=== PATIENT | female | born 1980 | race Caucasian/White ===

== ENCOUNTER 2017-04-30 12:16 | Emergency (ER) | payer SELFPAY ==
[~2017-04-30] VITALS: Ht 165.1 cm; Wt 90.0 kg
[2017-04-30 12:22] VITALS: BP 162/82; PULSE 78; RESP 16; TEMP 98.8; O2SAT 98
[2017-04-30] MEDS ORDERED: PRED20 PO (12:57)
[2017-04-30] MEDS ORDERED: PERM5CRE11 TOPICAL (12:57)
--- NOTE | 2017-04-30 12:57 | PD ---
HPI Chief Complaint: Skin Problem Time Seen by Provider: 12:49 Travel History International Travel<30 days: No Contact w/Intl Traveler<30days: No Traveled to known affect area: No History of Present Illness HPI 36-year-old female here with a rash to her upper and lower extremities 2 weeks. She reports the area as pruritic. Denies any recent change in soaps, detergents, or meds. Reports no Jakob the home has similar symptoms. She has not attempted any [id number] remedies for treatment. Symptom severity is moderate. No aggravating or alleviating factors. Denies fever or chills. PFSH Past Medical History Anxiety: Yes Depression: Yes Diabetes: No Diminished Hearing: No Seizures: No Influenza Vaccination: No ?: Not LMP: 10 days ago Tubal Ligation: Yes (10 YRS AGO) Past Surgical History Section: Yes Social History Alcohol Use: No Tobacco Use: Yes (1 pack/day) Substance Use: No Allergies-Medications (Allergen,Severity, Reaction): Coded Allergies: No Known Allergies (Unverified Adverse Reaction, Unknown, 04/30/17) Reported Meds & Prescriptions Reported Meds & Active Scripts Active No Active Prescriptions or Reported Medications Review of Systems Except as stated in HPI: all other systems reviewed are Neg General / Constitutional: No: Fever Physical Exam Narrative GENERAL: Alert and well-appearing 36-year-old female SKIN: Warm and dry. Diffuse erythematous rash originating in the webs of fingers extending up to the forearms. This is consistent with scabies. No evidence of skin infection. HEAD: Normocephalic. EYES: No injection or drainage. NECK: Supple CARDIOVASCULAR: Regular rate and rhythm without murmurs, gallops, or rubs. RESPIRATORY: Breath sounds equal bilaterally. No accessory muscle use. GASTROINTESTINAL: Abdomen soft, non-tender, nondistended. MUSCULOSKELETAL: No cyanosis, or edema. BACK: Nontender without obvious deformity. No CVA tenderness. Data Data Last Documented VS Vital Signs Date Time Temp Pulse Resp B/P (MAP) Pulse Ox O2 Delivery O2 Flow Rate FiO2 04/30/17 12:22 98.8 78 16 162/82 (108) 98 MDM Medical Decision Making Medical Screen Exam Complete: Yes Emergency Medical Condition: Yes Differential Diagnosis Scabies, dermatitis, other Narrative Course 36-year-old female here with a pruritic rash to her upper and lower extremities. No evidence of infection. Patient is nontoxic-appearing. We treated with Elimite, steroids, Benadryl. Diagnosis Primary Impression: Rash and nonspecific skin eruption Referrals: Primary Care Physician Departure Forms: Tests/Procedures, Work Release Enter return to work date: May 01, 2017 Additional Instructions: Medications as directed. Benadryl 25 mg every 6 hours as needed for itching. Scripts Prednisone (Prednisone) 20 Mg Tab 40 MG PO DAILY, #10 TAB 0 Refills Take 40 mg (2 tablets) daily for 5 days Prov: Jessie Desir 04/30/17 Permethrin Topical (Elimite Topical) 5% Cream 1 APPLIC TOPICAL ONCE for Scabies, #1 TUBE 0 Refills Prov: Jessie Desir 04/30/17 Disposition: 01 DISCHARGE HOME Condition: Stable Jessie Desir Apr 30, 2017 12:57
== END 2017-04-30 13:05 | disposition home or self-care (01) ==
LOC: PHEFT 12:16
DX: R21 Rash and other nonspecific skin eruption (principal); F32.9 Major depressive disorder, single episode, unspecified; F17.210 Nicotine dependence, cigarettes, uncomplicated
CPT/HCPCS: 99283

== ENCOUNTER 2017-08-12 10:48 | Emergency (ER) | payer SELFPAY ==
[~2017-08-12] VITALS: Ht 165.1 cm; Wt 89.0 kg
[~2017-08-12 10:48] MED LIST: PERM5CRE11 TOPICAL; PRED20 PO
[2017-08-12 10:52] VITALS: BP 123/72; PULSE 69; RESP 16; TEMP 98.9; O2SAT 97
[2017-08-12] MEDS ORDERED: IBUP1TAB7 PO (11:10)
[2017-08-12] MEDS ORDERED: ROBA500T PO (11:10)
--- NOTE | 2017-08-12 11:10 | PD ---
HPI Chief Complaint: Back/ Neck Pain or Injury Time Seen by Provider: 10:59 Travel History International Travel<30 days: No Contact w/Intl Traveler<30days: No Traveled to known affect area: No History of Present Illness HPI This is a 36-year-old female here with right low back pain that radiates into the buttocks and leg ongoing for several days. She denies specific injury or trauma. She reports that she works at a [employer] and routinely bends, lifts, twist the torso and attributes the pain to this. No fever, incontinence, saddle anesthesia, paresthesia or weakness of the extremities. No history of IVDA. Symptom severity is mild to moderate. Aggravated by movement and slightly relieved with rest and Tylenol. PFSH Past Medical History Anxiety: Yes Depression: Yes Diabetes: No Diminished Hearing: No Seizures: No Tetanus Vaccination: Unknown ?: Not LMP: 1 1/2 weeks ago Tubal Ligation: Yes (10 YRS AGO) Past Surgical History Section: Yes Social History Alcohol Use: No Tobacco Use: Yes (1 pack/day) Substance Use: No Allergies-Medications (Allergen,Severity, Reaction): Coded Allergies: No Known Allergies (Unverified Adverse Reaction, Unknown, 08/12/17) Reported Meds & Prescriptions Reported Meds & Active Scripts Active No Active Prescriptions or Reported Medications Review of Systems Except as stated in HPI: all other systems reviewed are Neg General / Constitutional: No: Fever Eyes: No: Visual changes HENT: No: Headaches Cardiovascular: No: Chest Pain or Discomfort Respiratory: No: Shortness of Breath Gastrointestinal: No: Abdominal Pain Genitourinary: No: Dysuria Physical Exam Narrative GENERAL: Alert and well-appearing 36-year-old female. Ambulates with steady gait. SKIN: Warm and dry. HEAD: Normocephalic. EYES: No injection or drainage. NECK: Supple CARDIOVASCULAR: Regular rate and rhythm RESPIRATORY: Breath sounds equal bilaterally. No accessory muscle use. GASTROINTESTINAL: Abdomen soft, non-tender, nondistended. MUSCULOSKELETAL: No cyanosis, or edema. Normal strength and sensation in the lower extremities. Ambulates with a steady gait. Negative straight leg raise BACK: Mild tenderness over the right sacroiliac region into the right gluteal. No lumbar spine tenderness. Without obvious deformity. No CVA tenderness. Data Data Last Documented VS Vital Signs Date Time Temp Pulse Resp B/P (MAP) Pulse Ox O2 Delivery O2 Flow Rate FiO2 08/12/17 10:52 98.9 69 16 123/72 (89) 97 MDM Medical Decision Making Medical Screen Exam Complete: Yes Emergency Medical Condition: Yes Differential Diagnosis Sciatica, lumbar strain, herniated disc Narrative Course 36-year-old female here with mild sciatica pain. She has a normal neurologic exam. No lumbar spine tenderness. She will be treated with NSAIDs and muscle relaxers. Diagnosis Primary Impression: Sciatica Qualified Codes: M54.31 - Sciatica, right side Referrals: Primary Care Physician Departure Forms: Tests/Procedures, Work Release Enter return to work date: Aug 13, 2017 Special Instructions: Light duty for 1 week Additional Instructions: Medication as directed. Perform light stretches as directed. Follow-up with your primary doctor Scripts Methocarbamol (Robaxin) 500 Mg Tab 500 MG PO TID for Muscle Spasm, #12 TAB 0 Refills Prov: Jessie Desir 08/12/17 Ibuprofen (Ibuprofen) 800 Mg Tab 800 MG PO Q6HR Y for PAIN, #40 TAB 0 Refills Prov: Jessie Desir 08/12/17 Disposition: 01 DISCHARGE HOME Condition: Stable Jessie Desir Aug 12, 2017 11:10
== END 2017-08-12 11:21 | disposition home or self-care (01) ==
LOC: PHEFT 10:48
DX: M54.31 Sciatica, right side (principal); F41.9 Anxiety disorder, unspecified; F32.9 Major depressive disorder, single episode, unspecified; F17.200 Nicotine dependence, unspecified, uncomplicated
CPT/HCPCS: 99283